=== PATIENT | male | born 1970 | race Caucasian/White ===

== ENCOUNTER 2024-03-23 12:20 | Emergency (ER) | payer BC, OTHER ==
--- NOTE | 2024-03-23 13:24 | ED ---
Upper Extremity HPI - General Chief Complaint: Extremity Injury, Upper Stated Complaint: L hand injury Time Seen by Provider: 03/23/24 12:36 Source: patient, RN notes reviewed Mode of arrival: ambulatory Limitations: no limitations, physical limitation - History of Present Illness Initial Comments: This is a 53-year-old male presenting with left pinky dislocation 1 hour ago. Patient states he was splitting wood when the ax handle struck his pinky causing the distal joint to lock preventing flexion. Denies other injury or significant pain. MD Complaint: Injury to:: left, finger Onset/Timin -: hour(s) Other Extremity Injury: Fingers: Left Other Injuries: none Place: outdoors Severity scale (1-10): 5 Improves With: cold therapy, immobilization, medication Worsens With: movement of extremity Context: direct blow Associated Symptoms: denies other symptoms Treatments Prior to Arrival: cold therapy - Related Data Home Medications Medication Instructions Recorded Confirmed No Known Home Medications 01/16/15 01/16/15 Allergies Allergy/AdvReac Type Severity Reaction Status Date / Time No Known Allergies Allergy Verified 03/23/24 12:50 Review of Systems ROS Statement: Those systems with pertinent positive or pertinent negative responses have been documented in the HPI. ROS Other: All systems not noted in ROS Statement are negative. Past Medical History Past Medical History: No Reported History History of Any Multi-Drug Resistant Organisms: None Reported Additional Past Surgical History / Comment(s): skin grafts Past Psychological History: No Psychological Hx Reported Smoking Status: Never smoker Past Alcohol Use History: None Reported Past Drug Use History: None Reported General Exam Limitations: no limitations, physical limitation General appearance: alert, in no apparent distress Head exam: Present: atraumatic, normocephalic, normal inspection Eye exam: Present: normal appearance, PERRL, EOMI. Absent: scleral icterus, conjunctival injection, periorbital swelling ENT exam: Present: normal exam, mucous membranes moist Neck exam: Present: normal inspection. Absent: tenderness, meningismus, lymphadenopathy Respiratory exam: Present: normal lung sounds bilaterally. Absent: respiratory distress, wheezes, rales, rhonchi, stridor Cardiovascular Exam: Present: regular rate, normal rhythm, normal heart sounds. Absent: systolic murmur, diastolic murmur, rubs, gallop, clicks GI/Abdominal exam: Present: soft, normal bowel sounds. Absent: distended, tenderness, guarding, rebound, rigid Extremities exam: Present: tenderness (Positive left fifth digit DIP joint tenderness with dorsal bony protrusion noted and inability to flex the affected joint), normal capillary refill, other (Distal neurovascular intact, capillary refill less than 2 seconds). Absent: pedal edema, joint swelling, calf tenderness Back exam: Present: normal inspection Neurological exam: Present: alert, oriented X3, CN II-XII intact Psychiatric exam: Present: normal affect, normal mood Skin exam: Present: warm, dry, intact, normal color. Absent: rash Course Vital Signs 03/23/24 03/23/24 12:51 14:16 Temperature 98.2 F 98.1 F Pulse Rate 79 74 Respiratory 20 18 Rate Blood Pressure 147/92 144/89 O2 Sat by Pulse 98 98 Oximetry Procedures - Orthopedic Joint Reduction Joint #1 Consent Obtained: verbal consent Side: left Joint Reduction Location: finger Analgesia: none Technique Used: traction/counter-traction Post-Reduction Neuro Exam: intact Post-Reduction Vascular Exam: intact Post Reduction X-Ray Obtained: Yes Post Reduction X-Ray Results: reduced Splint Applied: No Patient Tolerated Procedure: well Medical Decision Making - Medical Decision Making Was pt. sent in by a medical professional or institution (, PA, ASSISTANT FOOTBALL COACH, urgent care, hospital, or assisted...) When possible be specific @ -No Did you speak to anyone other than the patient for history (EMS, parent, family, police, friend...)? What history was obtained from this source @ -No Did you review nursing and triage notes (agree or disagree)? Why? @ -I reviewed and agree with nursing and triage notes Were old charts reviewed (outside hosp., previous admission, EMS record, old EKG, old radiological studies, urgent care reports/EKG's, assisted records)? Report findings @ -No old charts were reviewed Differential Diagnosis (chest pain, altered mental status, abdominal pain women, abdominal pain men, vaginal bleeding, weakness, fever, dyspnea, syncope, headache, dizziness, GI bleed, back pain, seizure, CVA, palpatations, mental health, musculoskeletal)? @ -Finger fracture, dislocation, sprain, contusion EKG interpreted by me (3pts min.). @ -Not done X-rays interpreted by me (1pt min.). @ -Left finger x-ray shows acute dorsal dislocation of distal phalanx of the left digit at the DIP joint with no acute fracture identified. Postreduction x- ray shows proper alignment CT interpreted by me (1pt min.). @ -None done U/S interpreted by me (1pt. min.). @ -None done What testing was considered but not performed or refused? (CT, X-rays, U/S, labs)? Why? @ -None What meds were considered but not given or refused? Why? @ -None Did you discuss the management of the patient with other professionals (professionals i.e. DrViky, PA, ASSISTANT FOOTBALL COACH, lab, RT, psych nurse, social human services assistants, piano teacher, teacher, special weapons unit officer, oil field caser)? Give summary @ -No Was smoking cessation discussed for >3mins.? @ -No Was critical care preformed (if so, how long)? @ -No Were there social determinants of health that impacted care today? How? (Homelessness, low income, unemployed, alcoholism, drug addiction, transportation, low edu. Level, literacy, decrease access to med. care, half-way, rehab)? @ -No Was there de-escalation of care discussed even if they declined (Discuss DNR or withdrawal of care, Hospice)? DNR status @ -No What co-morbidities impacted this encounter? (DM, HTN, Smoking, COPD, CAD, Cancer, CVA, ARF, Chemo, Hep., AIDS, mental health diagnosis, sleep apnea, morbid obesity)? @ -None Was patient admitted / discharged? Hospital course, mention meds given and route, prescriptions, significant lab abnormalities, going to OR and other pertinent info. @ -Left finger x-ray shows acute dorsal dislocation of distal phalanx of the left digit at the DIP joint with no acute fracture identified. Dislocation reduced without complication. Postreduction x-ray shows proper alignment and patient able to flex joint without pain following procedure. Discussed patient with Dr. Alcantara. Undiagnosed new problem with uncertain prognosis? @ -No Drug Therapy requiring intensive monitoring for toxicity (Heparin, Nitro, Insulin, Cardizem)? @ -No Were any procedures done? @ -Reduction of dislocation performed without complication Diagnosis/symptom? @ -Finger dislocation Acute, or Chronic, or Acute on Chronic? @ -Acute Uncomplicated (without systemic symptoms) or Complicated (systemic symptoms)? @ -Uncomplicated Side effects of treatment? @ -No Exacerbation, Progression, or Severe Exacerbation? @ -No Poses a threat to life or bodily function? How? (Chest pain, [place], [place], pneumonia, PE, COPD, DKA, ARF, appy, cholecystitis, CVA, Diverticulitis, Homicidal, Suicidal, threat to staff... and all critical care pts) @ -No Disposition Clinical Impression: Dislocation of distal interphalangeal (DIP) joint of left little finger Disposition: HOME SELF-CARE Condition: Good Is patient prescribed a controlled substance at d/c from ED?: No Referrals: Emmanuel Nair MD [Primary Care Provider] - 1-2 days Time of Disposition: 14:00
--- NOTE | 2024-03-23 13:35 | XR ---
EXAMINATION TYPE: XR finger LT DATE OF EXAM: 03/23/2024 1:30 PM INDICATION: Patient age:Male; 53 years old; Reason for study: Fifth digit DIP joint; PHH. pain COMPARISON: Left hand radiograph 04/25/2013 TECHNIQUE: Frontal, lateral and oblique views of the fifth digit of the left hand were obtained. FINDINGS: No acute fracture. There is dorsal dislocation of the distal phalanx of the fifth digit at the DIP joint. Best appreciated on the lateral view. No evidence of soft tissue swelling. No radiopaq ue foreign body. IMPRESSION: Acute dorsal dislocation of the distal phalanx of the fifth digit at the DIP joint. No definitive fra cture identified. [facility], , 03/23/2024 1:33 PM
--- NOTE | 2024-03-23 13:58 | XR ---
EXAMINATION TYPE: XR finger LT DATE OF EXAM: 03/23/2024 1:52 PM COMPARISON: Earlier exam CLINICAL INDICATION: Male, 53 years old with history of Post reduction, pain TECHNIQUE: 2 view(s) obtained. FINDINGS: There is reduction of the dislocated distal phalanx on the proximal middle phalanx. No fractures evid ent. Soft tissues appear normal. IMPRESSION: 1. Reduction of previously dislocated distal phalanx on the middle phalanx fifth digit. [facility], , 03/23/2024 1:56 PM
[2024-03-23 14:18] VITALS: BP 144/89; PULSE 74; RESP 18; TEMP 98.1
== END 2024-03-23 14:17 | disposition home or self-care (01) ==
LOC: EC 12:20
DX: S63.297A Dislocation of distal interphalangeal joint of left little finger, initial encounter (principal); W22.8XXA Striking against or struck by other objects, initial encounter
CPT/HCPCS: 26770; 99283